=== PATIENT | female | born 1955 | race Caucasian/White ===

== ENCOUNTER → 2023-11-11 14:43 | Outpatient (REF) | payer MEDICARE, OTHER, SELFPAY | LOC: PAVMRI 14:43 | PROVIDERS: ATTENDING PHYSICIAN Physical Medicine & Rehabilitation; FAMILY PHYSICIAN Family Medicine | DX: M54.2 Cervicalgia (principal); M47.812 Spondylosis without myelopathy or radiculopathy, cervical region | CPT/HCPCS: 72141 ==

== ENCOUNTER → 2024-04-27 14:12 | Outpatient (REF) | payer MEDICARE, OTHER, SELFPAY | LOC: WDC 14:12 | PROVIDERS: ATTENDING PHYSICIAN Obstetrics & Gynecology; FAMILY PHYSICIAN Family Medicine | DX: Z12.31 Encounter for screening mammogram for malignant neoplasm of breast (principal) | CPT/HCPCS: 77063; 77067 ==

== ENCOUNTER 2024-11-29 06:25 | Day surgery (SDC) | payer MEDICARE, OTHER, SELFPAY | END 2024-11-29 12:38 | disposition home or self-care (01) | LOC: GI 06:25 | PROVIDERS: ATTENDING PHYSICIAN Internal Medicine | DX: Z12.11 Encounter for screening for malignant neoplasm of colon (principal); K64.9 Unspecified hemorrhoids; K51.00 Ulcerative (chronic) pancolitis without complications | CPT/HCPCS: 45380; 88305 ==

== ENCOUNTER → 2025-05-03 08:48 | Outpatient (REF) | payer MEDICARE, OTHER, SELFPAY | LOC: WDC 08:48 | PROVIDERS: ATTENDING PHYSICIAN Obstetrics & Gynecology; FAMILY PHYSICIAN Family Medicine | DX: Z12.31 Encounter for screening mammogram for malignant neoplasm of breast (principal) | CPT/HCPCS: 77063; 77067 ==

== ENCOUNTER → 2025-08-29 06:48 | Outpatient (REF) | payer MEDICARE, OTHER, SELFPAY | LOC: HWRAD 06:48 | PROVIDERS: ATTENDING PHYSICIAN Physician Assistant; FAMILY PHYSICIAN Family Medicine | DX: M81.0 Age-related osteoporosis without current pathological fracture (principal) | CPT/HCPCS: 77080 ==